=== PATIENT | male | born 1970 | race Two or more races ===

== ENCOUNTER 2016-10-19 12:52 | Emergency (ER) | payer BC, MEDICAID ==
[2016-10-19 13:01] VITALS: BP 148/94
--- NOTE | 2016-10-19 13:40 | EDM.PDOC ---
ED HPI GENERAL MEDICAL PROBLEM - General Chief Complaint: Back Pain or Injury Stated Complaint: FELL MULTIPLE INJURIES Time Seen by Provider: 10/19/16 13:13 Source of Information: Reports: Patient History Limitations: Reports: No Limitations - History of Present Illness INITIAL COMMENTS - FREE TEXT/NARRATIVE: Patient is a 45-year-old male with a history of MS who presents ED complaining of posterior/lateral neck pain, discomfort to his wrists bilaterally, discomfort to his left knee, discomfort to his left/right ankle. Patient states [place] his left foot got caught on a monitor cord causing him to trip and fall on all fours. Patient did catch himself with his hands and landed on his knees. There was no loss of consciousness. Patient was able to get up with assistance and ambulate with a cane/walker with no issues. States earlier this morning he awoke with increasing discomfort/sensation changes to the above areas. He is concerned he may have fractures to his ankles, knee, wrist. He has poor sensation to these areas. And notes previous experiences he was walking around on fractured toes for a few weeks until diagnosed. Pain in the neck is posterior and lateral. It' s increased with palpation and also turning head from left to right. Patient states he was diagnosed with MS in 2009 and states the disease is progressing quite quickly. There is a family history. Patient denies any additional complaints at this time. Onset Date: 10/19/16 Onset Time: 02:00 Duration: Constant, Waxing/Waning Location: Reports: Other (CHPI) Worsens with: Reports: Other (Palpation), Movement Context: Reports: Other (Fall) Treatments AIR DIRECTOR: Reports: Other (see below) (CHPI) Upper Back Pain Score (Numeric/FACES): 7 - Related Data Allergies Allergy/AdvReac Type Severity Reaction Status Date / Time Oqphuql-Zhf-Sih Reductase Allergy Anaphylactic Verified 07/17/15 19:44 Inhibitor Shock Home Meds: Home Meds Aspirin 81 mg PO DAILY 07/16/15 [History] DULoxetine [Cymbalta] 60 mg PO BEDTIME 07/16/15 [History] Insulin Glarg,Human.Rec.Analog [Lantus] 30 unit SUBCUT BID 07/16/15 [History] Omeprazole [Prilosec] 20 mg PO DAILY 07/16/15 [History] Ranitidine HCl [Ranitidine] 150 mg PO BEDTIME 07/16/15 [History] Insulin Aspart [NovoLOG] 100 unit SUBCUT TIDAC 07/17/15 [History] ALPRAZolam [Xanax] 1 mg PO BID 10/19/16 [History] DULoxetine [Cymbalta] 30 mg PO DAILY 10/19/16 [History] Past Medical History HEENT History: Reports: Other (See Below) Other HEENT History: wears glasses Cardiovascular History: Reports: High Cholesterol Gastrointestinal History: Reports: GERD Musculoskeletal History: Reports: Fracture, Muscular Dystrophy Neurological History: Reports: Neuropathy, Peripheral Endocrine/Metabolic History: Reports: Diabetes, Type I Social & Family History - Tobacco Use Smoking Status *Q: Never Smoker Years of Tobacco use: 20 Packs/Tins Daily: 1 Used Tobacco, but Quit: Yes Month Tobacco Last Used: March 2015 - Caffeine Use Caffeine Use: Reports: Coffee, Tea - Recreational Drug Use Recreational Drug Use: No - Living Situation & Occupation Living situation: Reports: with Family ED ROS GENERAL - Review of Systems Review Of Systems: ROS reveals no pertinent complaints other than HPI. ED EXAM, GENERAL - Physical Exam Exam: See Below Exam Limited By: No Limitations General Appearance: Alert, WD/WN, No Apparent Distress Ears: Hearing Grossly Normal Nose: Normal Inspection Throat/Mouth: Normal Voice, No Airway Compromise Head: Atraumatic, Normocephalic Neck: Normal Inspection, Supple, Limited Range of Motion, Tender Lateral, Tender Midline Respiratory/Chest: No Respiratory Distress, Normal Breath Sounds, No Accessory Muscle Use, Chest Non-Tender Cardiovascular: Normal Peripheral Pulses, Regular Rate, Rhythm Peripheral Pulses: 2+: Radial (R) GI/Abdominal: Normal Bowel Sounds, Soft, Non-Tender, No Organomegaly, No Distention Back Exam: Normal Inspection, Full Range of Motion. No: Paraspinal Tenderness, Vertebral Tenderness Extremities: Normal Inspection, Normal Range of Motion, Non-Tender, No Pedal Edema, Normal Capillary Refill Neurological: Alert, Oriented, CN II-XII Intact, Normal Cognition, Other ( Sensory deficits to the upper or lower extremities) Psychiatric: Normal Affect, Normal Mood Skin Exam: Warm, Dry, Intact, Normal Color, No Rash. No: Ecchymosis Course - Vital Signs Last Recorded V/S: Last Vital Signs Temp 98.2 F 10/19/16 13:00 Pulse 91 10/19/16 13:00 Resp 20 10/19/16 13:00 BP 148/94 H 10/19/16 13:00 Pulse Ox 96 10/19/16 13:00 - Re-Assessments/Exams Free Text/Narrative Re-Assessment/Exam: Will obtain x-rays of the left/right knee, right/left wrist, right/left ankle, and CT of the cervical spine without contrast. 10/19/16 14:25 CT cervical spine nothing acute is identified on CT study of the cervical spine. X-rays of the wrists, knees, ankles did not reveal any acute bony abnormalities. Chronic changes noted. Dr. Schwab reviewed and requested [facility] read wrist images R/L. 10/19/16 15:17 x-ray of the right and left wrist did not reveal any acute bony abnormalities. Will discharge patient home with instructions as documented. Departure - Departure Time of Disposition: 15:18 Disposition: Home, Self-Care 01 Condition: Good Clinical Impression: Bilateral wrist pain Fall Qualifiers: Encounter type: initial encounter Qualified Code(s): W19.XXXA - Unspecified fall, initial encounter Bilateral ankle pain Qualifiers: Chronicity: acute Qualified Code(s): M25.571 - Pain in right ankle and joints of right foot Knee pain, left Qualifiers: Chronicity: acute Qualified Code(s): M25.562 - Pain in left knee - Discharge Information Instructions: Ankle Pain, Wrist Pain Referrals: Thee Morrison Jr, MD [Primary Care Provider] - Forms: ED Department Discharge Additional Instructions: X-rays of the wrist, knees, ankles did not reveal any acute bony abnormalities. If he continued having issues please follow up with her primary care provider for reevaluation and treatment this coming week. Return back to ED if you develop any new or worsening symptoms. Utilize ice to the affected areas as needed. Take Tylenol and ibuprofen in alternating fashion for pain.
--- NOTE | 2016-10-19 14:06 | CT ---
CT cervical spine Technique: Multiple axial sections were obtained from above C1 inferiorly to the bottom of T2. Reconstructed sagittal and coronal images were reviewed. Comparison: No previous cervical spine imaging. Findings: Mastoid sinuses and middle ear cavities are clear. Posterior skull base is intact. Vertebral body heights and disc spaces are fairly well preserved. Vertebral bodies and posterior arches are intact. No subluxation or fracture is seen. Minimal degenerative change is seen within the lower apophyseal joints. Impression: 1. Nothing acute is identified on CT study of the cervical spine. Diagnostic code #2
--- NOTE | 2016-10-19 14:56 | CR ---
Left wrist: 2 views of the left wrist were obtained. Joint spaces are preserved. No fracture or other abnormality is seen. Impression: 1. No abnormality is identified on 2 view left wrist exam. Diagnostic code #1
--- NOTE | 2016-10-19 14:56 | CR ---
Right wrist: 2 views of the right wrist were obtained. Comparison: No previous study. Joint spaces are preserved. No fracture, dislocation or other bony abnormality is seen. Impression: 1. No abnormality is identified on right wrist exam. Diagnostic code #1
--- NOTE | 2016-10-19 17:54 | CR ---
Left knee: AP and lateral views of the left knee were obtained. Comparison: No previous study. Mild medial joint space narrowing is seen. Lateral joint space is preserved. No joint effusion is seen. No acute fracture or other bony abnormality is seen. Impression: 1. Mild medial joint space narrowing. 2. Nothing acute is appreciated on two-view left knee exam. Diagnostic code #2
--- NOTE | 2016-10-19 17:54 | CR ---
Right knee: Two views of the right knee were obtained. Comparison: No previous study. Medial and lateral joint spaces are maintained in height. No joint effusion is seen. No fracture or other bony abnormality is seen. Impression: 1. No abnormality is seen on two-view right knee exam. Diagnostic code #1
--- NOTE | 2016-10-19 17:54 | CR ---
Left ankle: Two views of the left ankle were obtained. Comparison: No previous study. Ankle mortise is symmetric. No fracture or other bony abnormality is seen. Impression: 1. No abnormality is identified on two-view left ankle exam. Diagnostic code #1
--- NOTE | 2016-10-19 17:54 | CR ---
Right ankle: Two views of the right ankle were obtained. Comparison: No previous study. Ankle mortise is symmetric. No fracture or other abnormality is appreciated. Impression: 1. No abnormality is identified on two-view right ankle exam. Diagnostic code #1
== END 2016-10-19 15:25 | disposition home or self-care (01) ==
LOC: JD.ED 12:52
DX: M25.571 Pain in right ankle and joints of right foot (principal); M25.562 Pain in left knee; M25.572 Pain in left ankle and joints of left foot; M25.532 Pain in left wrist; M25.531 Pain in right wrist; K21.9 Gastro-esophageal reflux disease without esophagitis; E10.9 Type 1 diabetes mellitus without complications; Z79.82 Long term (current) use of aspirin; Z79.899 Other long term (current) drug therapy; E78.00 Pure hypercholesterolemia, unspecified; W01.0XXA Fall on same level from slipping, tripping and stumbling without subsequent striking against object, initial encounter
CPT/HCPCS: 72125; 72125-26; 73100-26-LT; 73100-26-RT; 73100-LT; 73100-RT; 73560-26-LT; 73560-26-RT; 73560-LT; 73560-RT; 73600-26-LT; 73600-26-RT; 73600-LT; 73600-RT; 99284; 99284-25

== ENCOUNTER 2017-06-07 14:09 | Emergency (ER) | payer MEDICARE, BC ==
[2017-06-07 14:40] VITALS: BP 162/91
--- NOTE | 2017-06-07 15:12 | EDM.PDOC ---
ED HPI GENERAL MEDICAL PROBLEM - General Chief Complaint: Genitourinary Problem Stated Complaint: BLOOD IN URINE Time Seen by Provider: 06/07/17 14:45 Source of Information: Reports: Patient History Limitations: Reports: Other (MD) - History of Present Illness INITIAL COMMENTS - FREE TEXT/NARRATIVE: Patient is a 46-year-old male with history of muscular dystrophy who presents ED with one episode hematuria. Patient states with urinating noticed some blood within his urine. States became fairly anxious with this episode thus worked himself up and was mildly nauseated for a short period of time. He has no complaints at this time. He's never had blood within his urine. He does not take any anticoagulants. He is taking aspirin 81 mg every day religiously. Denies any history of bleeding disorders. He does have a smoking history quit some time ago. Denies any fever, chills, nausea/vomiting, abdominal pain, dysuria, or any additional complaint. - Related Data Allergies Allergy/AdvReac Type Severity Reaction Status Date / Time Legovpm-Xwi-Zie Reductase Allergy Anaphylactic Verified 07/17/15 19:44 Inhibitor Shock Home Meds: Home Meds Aspirin 81 mg PO DAILY 07/16/15 [History] DULoxetine [Cymbalta] 60 mg PO BID 07/16/15 [History] Insulin Glarg,Human.Rec.Analog [Lantus] 30 unit SUBCUT BID 07/16/15 [History] Omeprazole [Prilosec] 20 mg PO DAILY 07/16/15 [History] Ranitidine HCl [Ranitidine] 150 mg PO BEDTIME 07/16/15 [History] Insulin Aspart [NovoLOG] 100 unit SUBCUT TIDAC 07/17/15 [History] ALPRAZolam [Xanax] 1 mg PO BID 10/19/16 [History] Albuterol Sulfate [Proventil Hfa] 2 puff INH ASDIRECTED 06/07/17 [History] Ammonium Lactate [Lakesha-Hydrolac] 1 applic TOP QID 06/07/17 [History] Cholecalciferol (Vitamin D3) [Vitamin D3] 400 unit PO DAILY 06/07/17 [History] Cholestyramine [Cholestyramine Resin] 5 mg PO DAILY 06/07/17 [History] Cyanocobalamin (Vitamin B12) [Vitamin B12] 1,000 mcg PO DAILY 06/07/17 [History] Lisinopril 20 mg PO BID 06/07/17 [History] Magnesium Gluconate 500 mg PO DAILY 06/07/17 [History] Minocycline [Minocin] 100 mg PO DAILY 06/07/17 [History] Silver Sulfadiazine [Silvadene 1% Cream 20 GM] 1 applic TOP BID 06/07/17 [ History] Past Medical History HEENT History: Reports: Other (See Below) Other HEENT History: wears glasses Cardiovascular History: Reports: High Cholesterol Gastrointestinal History: Reports: GERD Musculoskeletal History: Reports: Fracture, Muscular Dystrophy Neurological History: Reports: Neuropathy, Peripheral Endocrine/Metabolic History: Reports: Diabetes, Type I Social & Family History - Tobacco Use Smoking Status *Q: Never Smoker Years of Tobacco use: 20 Packs/Tins Daily: 1 Used Tobacco, but Quit: Yes Month Tobacco Last Used: March 2015 - Caffeine Use Caffeine Use: Reports: Coffee - Recreational Drug Use Recreational Drug Use: No - Living Situation & Occupation Living situation: Reports: with Family ED ROS GENERAL - Review of Systems Review Of Systems: See Below Constitutional: Reports: No Symptoms Respiratory: Reports: No Symptoms Cardiovascular: Reports: No Symptoms GI/Abdominal: Reports: No Symptoms : Reports: Hematuria. Denies: Dysuria Musculoskeletal: Reports: No Symptoms ED EXAM, RENAL/ - Physical Exam Exam: See Below Exam Limited By: No Limitations General Appearance: Alert, WD/WN, No Apparent Distress Ears: Hearing Grossly Normal Nose: Normal Inspection Throat/Mouth: Normal Voice, No Airway Compromise Neck: Normal Inspection, Supple Respiratory/Chest: No Respiratory Distress, Lungs Clear, Normal Breath Sounds, No Accessory Muscle Use, Chest Non-Tender Cardiovascular: Normal Peripheral Pulses, Regular Rate, Rhythm, No Murmur GI/Abdominal: Normal Bowel Sounds, Soft, Non-Tender, No Organomegaly, Other (No flank pain) (Male) Exam: Deferred (No complaints per patient.) Extremities: Other (Braces to the feet bilaterally.) Neurological: Alert, Oriented, CN II-XII Intact, Normal Cognition Psychiatric: Normal Affect, Normal Mood Skin Exam: Warm, Dry, Intact, Normal Color, No Rash Course - Vital Signs Last Recorded V/S: Last Vital Signs Temp 97.2 F 06/07/17 14:39 Pulse 82 06/07/17 14:39 Resp 20 06/07/17 14:39 BP 162/91 H 06/07/17 14:39 Pulse Ox 95 06/07/17 14:39 - Orders/Labs/Meds Labs: Laboratory Tests 06/07/17 Range/Units 14:50 Urine Color Yellow (Yellow) Urine Appearance Clear (Clear) Urine pH 7.0 (5.0-8.0) Ur Specific [place] 1.020 (1.005-1.030) Urine Protein Negative (Negative) Urine Glucose (UA) Negative (Negative) Urine Ketones Negative (Negative) Urine Occult Blood 3+ H (Negative) Urine Nitrite Negative (Negative) Urine Bilirubin Negative (Negative) Urine Urobilinogen 0.2 (0.2-1.0) Ur Leukocyte Esterase Negative (Negative) Urine RBC 40-50 H (0-5) /hpf Urine WBC 0-5 (0-5) /hpf Ur Epithelial Cells 0-5 (0-5) /hpf Urine Bacteria Not seen (FEW) /hpf Urine Mucus Not seen (FEW) /hpf - Re-Assessments/Exams Free Text/Narrative Re-Assessment/Exam: UA came back positive for 3+ blood. No other concerning finds. He does have a history of smoking thus evaluation by urology would be appropriate. In addition I did review his previous labs obtained at [place] this past week. Hemoglobin, platelet count, and chemistry panel did not reveal any concerning findings. Last A1c was 7.4. Offered to obtain additional blood work and possible CT study of the abdomen and pelvis to which the patient has declined. He will follow-up with his PCP this week and make an appointment with urology for further evaluation for hematuria. Departure - Departure Time of Disposition: 15:13 Disposition: Home, Self-Care 01 Condition: Good Clinical Impression: Hematuria Qualifiers: Hematuria type: unspecified type Qualified Code(s): R31.9 - Hematuria, unspecified - Discharge Information Instructions: Hematuria, Adult Referrals: Thee Morrison Jr, MD [Primary Care Provider] - Forms: ED Department Discharge Additional Instructions: As discussed unclear etiology current complaint with recent episode of hematuria. Only a small amount of blood was present within her urine with evaluation the ED. No signs of infection present. With her history of smoking do believe evaluation by urology is required. Please see her primary care provider this week for reevaluation to ensure no worsening symptoms. Call urology at [facility] this coming Jose Guadalupe to make an appointment. Continue taking all your home medications as prescribed. Push the fluids. Return to the ED if you develop any new or worsening symptoms.
== END 2017-06-07 15:30 | disposition home or self-care (01) ==
LOC: JD.ED 14:09
DX: R31.9 Hematuria, unspecified (principal); E78.00 Pure hypercholesterolemia, unspecified; K21.9 Gastro-esophageal reflux disease without esophagitis; G71.0 Muscular dystrophy; Z88.8 Allergy status to other drugs, medicaments and biological substances; Z79.899 Other long term (current) drug therapy
CPT/HCPCS: 81001; 99283

== ENCOUNTER 2017-09-24 19:28 | Inpatient (IN) | payer MEDICARE, BC ==
[2017-09-24 19:34] VITALS: BP 135/78
[2017-09-24] MEDS ORDERED: Ondansetron 4 MG/2 ML SDV IVPUSH ONE (19:35)
[2017-09-24] MEDS ORDERED: Dextrose 5%-0.9% NaCl 1,000 ML IV SCH (19:45)
[2017-09-24] MEDS: Glucose Gel 15 GM in 37.5 GM Tube PO PRN ×2 (19:57→20:49)
[2017-09-24] MEDS: 50% Dextrose in Water 50 ML Syringe IVPUSH PRN ×3 (19:57→21:45)
[2017-09-24] MEDS ORDERED: Dextrose 10% in Water 500 ML IV SCH (20:00)
--- NOTE | 2017-09-24 20:23 | EDM.PDOC ---
ED HPI GENERAL MEDICAL PROBLEM - General Chief Complaint: Diabetic Complaint Stated Complaint: [facility] Time Seen by Provider: 09/24/17 20:07 Source of Information: Reports: Patient History Limitations: Reports: No Limitations - History of Present Illness INITIAL COMMENTS - FREE TEXT/NARRATIVE: Patient is a 46-year-old male with a history of MS and type 1 diabetes. Patient states at 1630 today he checked his blood sugar and it read 271. This is after eating a few slices of pizza. Patient waited 15 minutes prior to obtaining blood sugar. At that time he took 30 units of Levemir and also 20 units of NovoLog. At approximately 1700 hrs. he went to lay down because he was tired. Shortly after he started developing cold sweats and became fidgety concerning for low blood sugar. He checked his blood sugar and it read 31. Patient ate a few popsicles and drank a glass of milk rechecked it again and it was 30. Again he ate some more glucose tabs and waited 15 minutes and slightly raised it to 62. He one more glucose tab waited 15 minutes and it dropped to 51. Patient called 911 and was evaluated by EMS. They administered d50 and had patient eat jelly sandwiches along with other sweets. Blood sugars continued to drop. while enroute. Patient denies changes to insulin dosages. Denies CP, SOB , N/V, fever, dysuria, infected wounds or any additional complaints. States he did not inadvertently take to much insulin. - Related Data Allergies Allergy/AdvReac Type Severity Reaction Status Date / Time Lsvarql-Pqy-Alk Reductase Allergy Anaphylactic Verified 09/24/17 19:30 Inhibitor Shock Home Meds: Home Meds Aspirin 81 mg PO DAILY 07/16/15 [History] DULoxetine [Cymbalta] 60 mg PO DAILY 07/16/15 [History] Insulin Glarg,Human.Rec.Analog [Lantus] 30 unit SUBCUT BID 07/16/15 [History] Omeprazole [Prilosec] 20 mg PO DAILY 07/16/15 [History] Ranitidine HCl [Ranitidine] 150 mg PO BEDTIME 07/16/15 [History] Insulin Aspart [NovoLOG] 100 unit SUBCUT TIDAC 07/17/15 [History] ALPRAZolam [Xanax] 1 mg PO TID 10/19/16 [History] Albuterol Sulfate [Proventil Hfa] 2 puff INH ASDIRECTED 06/07/17 [History] Ammonium Lactate [Lakesha-Hydrolac] 1 applic TOP QID 06/07/17 [History] Cholecalciferol (Vitamin D3) [Vitamin D3] 400 unit PO DAILY 06/07/17 [History] Cholestyramine [Cholestyramine Resin] 4 gm PO DAILY 06/07/17 [History] Cyanocobalamin (Vitamin B12) [Vitamin B12] 1,000 mcg PO DAILY 06/07/17 [History] Lisinopril 20 mg PO BID 06/07/17 [History] Magnesium Gluconate 500 mg PO DAILY 06/07/17 [History] Minocycline [Minocin] 100 mg PO DAILY 06/07/17 [History] Silver Sulfadiazine [Silvadene 1% Cream 20 GM] 1 applic TOP BID 06/07/17 [ History] Calcium Carbonate/Vitamin D3 [Calcium 600 + D3 Softgel] 1 each PO DAILY [History] Insulin Detemir [Levemir] 30 unit SQ BID 09/24/17 [History] Lidocaine 5% [Lidoderm 5%] 1 patch TOP DAILY PRN 09/24/17 [History] Past Medical History HEENT History: Reports: Other (See Below) Other HEENT History: wears glasses Cardiovascular History: Reports: High Cholesterol Gastrointestinal History: Reports: GERD Musculoskeletal History: Reports: Fracture, Muscular Dystrophy Neurological History: Reports: Neuropathy, Peripheral Endocrine/Metabolic History: Reports: Diabetes, Type I Social & Family History - Tobacco Use Smoking Status *Q: Never Smoker Second Hand Smoke Exposure: No - Caffeine Use Caffeine Use: Reports: None - Recreational Drug Use Drug Use in Last 12 Months: Yes Recreational Drug Type: Reports: Marijuana/Hashish Other Recreational Drug Type: THC edible Recreational Drug Use Frequency: Weekly - Living Situation & Occupation Living situation: Reports: with Family ED ROS GENERAL - Review of Systems Review Of Systems: See Below Constitutional: Reports: Malaise, Fatigue. Denies: Fever, Chills, Decreased Appetite HEENT: Reports: No Symptoms Respiratory: Reports: No Symptoms Cardiovascular: Reports: No Symptoms GI/Abdominal: Reports: No Symptoms Musculoskeletal: Reports: No Symptoms Neurological: Reports: No Symptoms ED EXAM GENERAL NO PERIP PULSE - Physical Exam Exam: See Below Exam Limited By: No Limitations General Appearance: Alert, WD/WN, No Apparent Distress Eye Exam: Bilateral Eye: EOMI, PERRL Ears: Hearing Grossly Normal Nose: Normal Inspection Throat/Mouth: Normal Voice, No Airway Compromise Head: Atraumatic, Normocephalic Neck: Normal Inspection, Supple Respiratory/Chest: No Respiratory Distress, Lungs Clear, Normal Breath Sounds, No Accessory Muscle Use, Chest Non-Tender Cardiovascular: Normal Peripheral Pulses, Regular Rate, Rhythm, No Murmur GI/Abdominal: Normal Bowel Sounds, Soft, Non-Tender, No Organomegaly, No Distention Back Exam: Normal Inspection Extremities: Normal Inspection Neurological: Alert, Oriented, CN II-XII Intact, Normal Cognition, No Motor/ Sensory Deficits Psychiatric: Normal Affect, Normal Mood Skin Exam: Warm, Dry, Intact, Normal Color, No Rash Course - Vital Signs Last Recorded V/S: Last Vital Signs Temp 97.8 F 09/24/17 19:31 Pulse 89 09/24/17 19:31 Resp 16 09/24/17 19:31 BP 135/78 09/24/17 19:31 Pulse Ox 96 09/24/17 19:31 - Orders/Labs/Meds Labs: Laboratory Tests 09/24/17 09/24/17 09/24/17 Range/Units 19:33 19:53 19:55 WBC 10.57 H (4.23-9.07) K/mm3 RBC 4.61 L (4.63-6.08) M/mm3 Hgb 13.1 L (13.7-17.5) gm/L Hct 38.2 L (40.1-51.0) % MCV 82.9 (79.0-92.2) fl MCH 28.4 (25.7-32.2) pg MCHC 34.3 (32.2-35.5) g/dl RDW Std Deviation 39.8 (35.1-43.9) fL Plt Count 257 (163-337) K/mm3 MPV 11.1 (9.4-12.3) fl Neutrophils % (Manual) 70 H (40-60) % Band Neutrophils % 0 (0-10) % Lymphocytes % (Manual) 27 (20-40) % Atypical Lymphs % 0 % Monocytes % (Manual) 2 (2-10) % Eosinophils % (Manual) 0 L (0.8-7.0) % Basophils % (Manual) 1 (0.2-1.2) Platelet Estimate Adequate Plt Morphology Comment Normal RBC Morph Comment Normal Sodium (136-145) mEq/L Potassium (3.5-5.1) mEq/L Chloride (98-107) mEq/L Carbon Dioxide (21-32) mEq/L Anion Gap (5-15) BUN (7-18) mg/dL Creatinine (0.7-1.3) mg/dL Est Cr Clr Drug Dosing mL/min Estimated GFR (MDRD) (>60) mL/min BUN/Creatinine Ratio (14-18) Glucose (74-106) mg/dL POC Glucose 119 H 80 (70-105) mg/dL Hemoglobin A1c (4.50-6.20) % Calcium (8.5-10.1) mg/dL Total Bilirubin (0.2-1.0) mg/dL AST (15-37) U/L ALT (16-63) U/L Alkaline Phosphatase (46-116) U/L Total Protein (6.4-8.2) g/dl Albumin (3.4-5.0) g/dl Globulin gm/dL Albumin/Globulin Ratio (1-2) Urine Color (Yellow) Urine Appearance (Clear) Urine pH (5.0-8.0) Ur Specific [place] (1.005-1.030) Urine Protein (Negative) Urine Glucose (UA) (Negative) Urine Ketones (Negative) Urine Occult Blood (Negative) Urine Nitrite (Negative) Urine Bilirubin (Negative) Urine Urobilinogen (0.2-1.0) Ur Leukocyte Esterase (Negative) Urine RBC (0-5) /hpf Urine WBC (0-5) /hpf Ur Epithelial Cells (0-5) /hpf Urine Bacteria (FEW) /hpf Urine Mucus (FEW) /hpf 09/24/17 09/24/17 09/24/17 Range/Units 19:55 19:55 20:06 WBC (4.23-9.07) K/mm3 RBC (4.63-6.08) M/mm3 Hgb (13.7-17.5) gm/L Hct (40.1-51.0) % MCV (79.0-92.2) fl MCH (25.7-32.2) pg MCHC (32.2-35.5) g/dl RDW Std Deviation (35.1-43.9) fL Plt Count (163-337) K/mm3 MPV (9.4-12.3) fl Neutrophils % (Manual) (40-60) % Band Neutrophils % (0-10) % Lymphocytes % (Manual) (20-40) % Atypical Lymphs % % Monocytes % (Manual) (2-10) % Eosinophils % (Manual) (0.8-7.0) % Basophils % (Manual) (0.2-1.2) Platelet Estimate Plt Morphology Comment RBC Morph Comment Sodium 146 H (136-145) mEq/L Potassium 3.2 L (3.5-5.1) mEq/L Chloride 109 H (98-107) mEq/L Carbon Dioxide 28 (21-32) mEq/L Anion Gap 12.2 (5-15) BUN 9 (7-18) mg/dL Creatinine 0.9 (0.7-1.3) mg/dL Est Cr Clr Drug Dosing 91.11 mL/min Estimated GFR (MDRD) > 60 (>60) mL/min BUN/Creatinine Ratio 10.0 L (14-18) Glucose 66 L (74-106) mg/dL POC Glucose 194 H (70-105) mg/dL Hemoglobin A1c 7.40 H (4.50-6.20) % Calcium 8.8 (8.5-10.1) mg/dL Total Bilirubin 0.4 (0.2-1.0) mg/dL AST 41 H (15-37) U/L ALT 34 (16-63) U/L Alkaline Phosphatase 142 H (46-116) U/L Total Protein 7.0 (6.4-8.2) g/dl Albumin 3.6 (3.4-5.0) g/dl Globulin 3.4 gm/dL Albumin/Globulin Ratio 1.1 (1-2) Urine Color (Yellow) Urine Appearance (Clear) Urine pH (5.0-8.0) Ur Specific [place] (1.005-1.030) Urine Protein (Negative) Urine Glucose (UA) (Negative) Urine Ketones (Negative) Urine Occult Blood (Negative) Urine Nitrite (Negative) Urine Bilirubin (Negative) Urine Urobilinogen (0.2-1.0) Ur Leukocyte Esterase (Negative) Urine RBC (0-5) /hpf Urine WBC (0-5) /hpf Ur Epithelial Cells (0-5) /hpf Urine Bacteria (FEW) /hpf Urine Mucus (FEW) /hpf 09/24/17 09/24/17 09/24/17 Range/Units 20:17 20:49 20:50 WBC (4.23-9.07) K/mm3 RBC (4.63-6.08) M/mm3 Hgb (13.7-17.5) gm/L Hct (40.1-51.0) % MCV (79.0-92.2) fl MCH (25.7-32.2) pg MCHC (32.2-35.5) g/dl RDW Std Deviation (35.1-43.9) fL Plt Count (163-337) K/mm3 MPV (9.4-12.3) fl Neutrophils % (Manual) (40-60) % Band Neutrophils % (0-10) % Lymphocytes % (Manual) (20-40) % Atypical Lymphs % % Monocytes % (Manual) (2-10) % Eosinophils % (Manual) (0.8-7.0) % Basophils % (Manual) (0.2-1.2) Platelet Estimate Plt Morphology Comment RBC Morph Comment Sodium (136-145) mEq/L Potassium (3.5-5.1) mEq/L Chloride (98-107) mEq/L Carbon Dioxide (21-32) mEq/L Anion Gap (5-15) BUN (7-18) mg/dL Creatinine (0.7-1.3) mg/dL Est Cr Clr Drug Dosing mL/min Estimated GFR (MDRD) (>60) mL/min BUN/Creatinine Ratio (14-18) Glucose (74-106) mg/dL POC Glucose 140 H 76 (70-105) mg/dL Hemoglobin A1c (4.50-6.20) % Calcium (8.5-10.1) mg/dL Total Bilirubin (0.2-1.0) mg/dL AST (15-37) U/L ALT (16-63) U/L Alkaline Phosphatase (46-116) U/L Total Protein (6.4-8.2) g/dl Albumin (3.4-5.0) g/dl Globulin gm/dL Albumin/Globulin Ratio (1-2) Urine Color Yellow (Yellow) Urine Appearance Clear (Clear) Urine pH 6.5 (5.0-8.0) Ur Specific [place] 1.015 (1.005-1.030) Urine Protein Negative (Negative) Urine Glucose (UA) Trace H (Negative) Urine Ketones Negative (Negative) Urine Occult Blood Negative (Negative) Urine Nitrite Negative (Negative) Urine Bilirubin Negative (Negative) Urine Urobilinogen 0.2 (0.2-1.0) Ur Leukocyte Esterase Negative (Negative) Urine RBC Not seen (0-5) /hpf Urine WBC 0-5 (0-5) /hpf Ur Epithelial Cells 0-5 (0-5) /hpf Urine Bacteria Not seen (FEW) /hpf Urine Mucus Not seen (FEW) /hpf 09/24/17 09/24/17 09/24/17 Range/Units 21:04 21:20 21:41 WBC (4.23-9.07) K/mm3 RBC (4.63-6.08) M/mm3 Hgb (13.7-17.5) gm/L Hct (40.1-51.0) % MCV (79.0-92.2) fl MCH (25.7-32.2) pg MCHC (32.2-35.5) g/dl RDW Std Deviation (35.1-43.9) fL Plt Count (163-337) K/mm3 MPV (9.4-12.3) fl Neutrophils % (Manual) (40-60) % Band Neutrophils % (0-10) % Lymphocytes % (Manual) (20-40) % Atypical Lymphs % % Monocytes % (Manual) (2-10) % Eosinophils % (Manual) (0.8-7.0) % Basophils % (Manual) (0.2-1.2) Platelet Estimate Plt Morphology Comment RBC Morph Comment Sodium (136-145) mEq/L Potassium (3.5-5.1) mEq/L Chloride (98-107) mEq/L Carbon Dioxide (21-32) mEq/L Anion Gap (5-15) BUN (7-18) mg/dL Creatinine (0.7-1.3) mg/dL Est Cr Clr Drug Dosing mL/min Estimated GFR (MDRD) (>60) mL/min BUN/Creatinine Ratio (14-18) Glucose (74-106) mg/dL POC Glucose 71 138 H 89 (70-105) mg/dL Hemoglobin A1c (4.50-6.20) % Calcium (8.5-10.1) mg/dL Total Bilirubin (0.2-1.0) mg/dL AST (15-37) U/L ALT (16-63) U/L Alkaline Phosphatase (46-116) U/L Total Protein (6.4-8.2) g/dl Albumin (3.4-5.0) g/dl Globulin gm/dL Albumin/Globulin Ratio (1-2) Urine Color (Yellow) Urine Appearance (Clear) Urine pH (5.0-8.0) Ur Specific [place] (1.005-1.030) Urine Protein (Negative) Urine Glucose (UA) (Negative) Urine Ketones (Negative) Urine Occult Blood (Negative) Urine Nitrite (Negative) Urine Bilirubin (Negative) Urine Urobilinogen (0.2-1.0) Ur Leukocyte Esterase (Negative) Urine RBC (0-5) /hpf Urine WBC (0-5) /hpf Ur Epithelial Cells (0-5) /hpf Urine Bacteria (FEW) /hpf Urine Mucus (FEW) /hpf //18 Range/Units 22:05 WBC (4.23-9.07) K/mm3 RBC (4.63-6.08) M/mm3 Hgb (13.7-17.5) gm/L Hct (40.1-51.0) % MCV (79.0-92.2) fl MCH (25.7-32.2) pg MCHC (32.2-35.5) g/dl RDW Std Deviation (35.1-43.9) fL Plt Count (163-337) K/mm3 MPV (9.4-12.3) fl Neutrophils % (Manual) (40-60) % Band Neutrophils % (0-10) % Lymphocytes % (Manual) (20-40) % Atypical Lymphs % % Monocytes % (Manual) (2-10) % Eosinophils % (Manual) (0.8-7.0) % Basophils % (Manual) (0.2-1.2) Platelet Estimate Plt Morphology Comment RBC Morph Comment Sodium (136-145) mEq/L Potassium (3.5-5.1) mEq/L Chloride (98-107) mEq/L Carbon Dioxide (21-32) mEq/L Anion Gap (5-15) BUN (7-18) mg/dL Creatinine (0.7-1.3) mg/dL Est Cr Clr Drug Dosing mL/min Estimated GFR (MDRD) (>60) mL/min BUN/Creatinine Ratio (14-18) Glucose (74-106) mg/dL POC Glucose 178 H (70-105) mg/dL Hemoglobin A1c (4.50-6.20) % Calcium (8.5-10.1) mg/dL Total Bilirubin (0.2-1.0) mg/dL AST (15-37) U/L ALT (16-63) U/L Alkaline Phosphatase (46-116) U/L Total Protein (6.4-8.2) g/dl Albumin (3.4-5.0) g/dl Globulin gm/dL Albumin/Globulin Ratio (1-2) Urine Color (Yellow) Urine Appearance (Clear) Urine pH (5.0-8.0) Ur Specific [place] (1.005-1.030) Urine Protein (Negative) Urine Glucose (UA) (Negative) Urine Ketones (Negative) Urine Occult Blood (Negative) Urine Nitrite (Negative) Urine Bilirubin (Negative) Urine Urobilinogen (0.2-1.0) Ur Leukocyte Esterase (Negative) Urine RBC (0-5) /hpf Urine WBC (0-5) /hpf Ur Epithelial Cells (0-5) /hpf Urine Bacteria (FEW) /hpf Urine Mucus (FEW) /hpf Meds: Medications Discontinued Medications Generic Name Dose Route Start Last Admin Trade Name Freq PRN Reason Stop Dose Admin Dextrose 15 gm 09/24/17 19:35 09/24/17 20:49 Glutose 15 PO 15 gm ONETIME PRN Administration Hypoglycemia Dextrose 15 gm 09/24/17 20:25 Glutose 15 PO ASDIRECTED PRN Hypoglycemia Dextrose/Water 50 ml 09/24/17 19:35 09/24/17 21:45 Dextrose 50% In Water IVPUSH 50 ml ASDIRECTED PRN Administration Hypoglycemia Dextrose/Sodium Chloride 1,000 mls @ 150 mls/hr 09/24/17 19:45 09/24/17 19:45 Dextrose 5%-Normal Saline IV 150 mls/hr ASDIRECTED KESHA Administration Dextrose/Water 500 mls @ 150 mls/hr 09/24/17 20:00 09/24/17 19:50 Dextrose 10% In Water IV 150 mls/hr ASDIRECTED KESHA Administration Potassium Chloride 10 meq/ 100 mls @ 100 mls/hr 09/24/17 20:45 09/24/17 20:56 Premix IV 100 mls/hr ASDIRECTED KESHA Administration Ondansetron HCl 4 mg 09/24/17 19:35 09/24/17 19:45 Zofran IVPUSH 09/24/17 19:36 4 mg ONETIME ONE Administration Potassium Chloride 40 meq 09/24/17 20:33 09/24/17 20:56 Klor-Con M20 PO 09/24/17 20:34 40 meq ONETIME ONE Administration - Re-Assessments/Exams Free Text/Narrative Re-Assessment/Exam: Per EMS it was 168 in the ambulance bay. With movement to the ED bed patient's blood sugar is 119. Patient was ministered one amp of D50 and oral glucose. We initially ordered D5 with NS but were able to order D10. D10 will run in at 150mls/hr. IV established with D 10 and water at 150 mL per hour. Informed nursing staff may administer D50 and/or oral glucose if patients blood sugars drastically lower. Initial labs and orders to be obtained will include: CBC, C14, HA1C, and UA. 2019 per nursing patient's blood sugar is currently 140. 20 minutes prior patient's blood sugar was 194. He received one amp of D50 and also one tube of oral glucose. Patient was administered another tube of oral glucose with continued frequent blood sugar checks. 09/24/17 20:29 CBC: White blood cell count 10.57, hemoglobin 13.1, platelet count 257, differential pending. Sodium 146, potassium 3.2, hCG 12.2, creatinine 0.9, glucose 66, AST and alk phosphatase mildly elevated. Per nursing staff patient has admitted to taking xanax and edible marijuana candies just prior to administering himself insulin. Their are discrepancies in the story. states he has taken two xanax and eaten multiple edible marijuana candies. I suspect patient inadvertently administered to much insulin. 09/24/17 20:33 ordered potassium 40 mEq by mouth and also 10 mEq potassium rider. 09/24/17 21:[address] Smart vice president [facility]. He agrees with admission. Request ICU. Per nursing staff patients BS is Departure - Departure Time of Disposition: 20:32 Disposition: Admitted As Inpatient 68 Condition: Fair Clinical Impression: Hypoglycemia, Hypokalemia Adverse reaction to drug Qualifiers: Encounter type: initial encounter Qualified Code(s): T88.7XXA - Unspecified adverse effect of drug or medicament, initial encounter - Discharge Information
[2017-09-24] MEDS ORDERED: Glucose Gel 15 GM in 37.5 GM Tube PO PRN (20:25)
[2017-09-24] MEDS ORDERED: Potassium Chloride 20 MEQ Tab.ER PO ONE (20:33)
[2017-09-24] MEDS ORDERED: Potassium Chloride 10 MEQ in Premix Bag 1 BAG IV SCH (20:45)
--- NOTE | 2017-09-24 23:55 | PCM.HP ---
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 He reports a blood glucose level as low as 31 after taking 30 units of Levemir and 20 units of Novolog. He ate popsicles and drank a glass of milk but his sugar remained in the 30s. At that time, he took glucose tabs and waited for 15 minutes before he obtained a repeat glucose level of 62. He took in additional glucose tabs in anticipation of improving his level but his glucose dropped further down to the low 50s. Patient then called 911 and was provided initial care by EMS with some sandwich and sweets before he was brought over to ED for further management. His initial work up in ED shows a CBC remarkable for WBC of 10.57, RBC of 4.61, Hgb of 13.1, Hct of 38.2, Neutrophils of 70% and eosinophils of 0%. His chemistry is significant for sodium of 146, potassium of 3.2, chloride of 109, glucose of 66, A1C of 7.40, AST of 41, and alkaline phosphatase of 142. Her UA is negative for UTI. Patient is currently receiving glucose drip (Dextrose 10%) however his serial glucose levels are inconsistent following valleys and troughs pattern. He is being admitted to the unit for medical management of symptomatic hypoglycemia. He is DNR/DNI. - Related Data Allergies/Adverse Reactions: Allergies Allergy/AdvReac Type Severity Reaction Status Date / Time Lvbqata-[id number]-Kwu Reductase Allergy Anaphylactic Verified 09/24/17 19:30 Inhibitor Shock Home Medications: Home Meds Aspirin 81 mg PO DAILY 07/16/15 [History] DULoxetine [Cymbalta] 60 mg PO DAILY 07/16/15 [History] Insulin Glarg,Human.Rec.Analog [Lantus] 30 unit SUBCUT BID 07/16/15 [History] Omeprazole [Prilosec] 20 mg PO DAILY 07/16/15 [History] Ranitidine HCl [Ranitidine] 150 mg PO BEDTIME 07/16/15 [History] Insulin Aspart [NovoLOG] 100 unit SUBCUT TIDAC 07/17/15 [History] ALPRAZolam [Xanax] 1 mg PO TID 10/19/16 [History] Albuterol Sulfate [Proventil Hfa] 2 puff INH ASDIRECTED 06/07/17 [History] Ammonium Lactate [Lakesha-Hydrolac] 1 applic TOP QID 06/07/17 [History] Cholecalciferol (Vitamin D3) [Vitamin D3] 400 unit PO DAILY 06/07/17 [History] Cholestyramine [Cholestyramine Resin] 4 gm PO DAILY 06/07/17 [History] Cyanocobalamin (Vitamin B12) [Vitamin B12] 1,000 mcg PO DAILY 06/07/17 [History] Lisinopril 20 mg PO BID 06/07/17 [History] Magnesium Gluconate 500 mg PO DAILY 06/07/17 [History] Minocycline [Minocin] 100 mg PO DAILY 06/07/17 [History] Silver Sulfadiazine [Silvadene 1% Cream 20 GM] 1 applic TOP BID 06/07/17 [ History] Calcium Carbonate/Vitamin D3 [Calcium 600 + D3 Softgel] 1 each PO DAILY [History] Insulin Detemir [Levemir] 30 unit SQ BID 09/24/17 [History] Lidocaine 5% [Lidoderm 5%] 1 patch TOP DAILY PRN 09/24/17 [History] Past Medical History HEENT History: Reports: Other (See Below) Other HEENT History: wears glasses Cardiovascular History: Reports: High Cholesterol Gastrointestinal History: Reports: GERD Musculoskeletal History: Reports: Fracture, Muscular Dystrophy Neurological History: Reports: Neuropathy, Peripheral Endocrine/Metabolic History: Reports: Diabetes, Type I Social & Family History - Tobacco Use Smoking Status *Q: Never Smoker Second Hand Smoke Exposure: No - Caffeine Use Caffeine Use: Reports: Coffee - Recreational Drug Use Recreational Drug Use: Yes Drug Use in Last 12 Months: Yes Recreational Drug Type: Reports: Marijuana/Hashish Other Recreational Drug Type: THC edible Recreational Drug Use Frequency: Daily - Living Situation & Occupation Living situation: Reports: with Family H&P Review of Systems - Review of Systems: Review Of Systems: See Below Free Text/Narrative: Patient left AMA General: Reports: Malaise, Fatigue. Denies: Fever, Chills, Weakness HEENT: Reports: No Symptoms Pulmonary: Denies: Shortness of Breath, Wheezing, Pleuritic Chest Pain Cardiovascular: Denies: Chest Pain, Palpitations, Dyspnea on Exertion, Lightheadedness Gastrointestinal: Denies: Abdominal Pain, Nausea, Vomiting Genitourinary: Reports: No Symptoms Musculoskeletal: Reports: No Symptoms Skin: Reports: No Symptoms Psychiatric: Denies: Confusion, Depression, Anxiety, Agitation, Hallucinations Neurological: Reports: Pre-Existing Deficit, Difficulty Walking, Weakness, Gait Disturbance. Denies: Confusion, Dizziness, Headache, Seizure, Syncope, Trouble Speaking, Change in Speech Hematologic/Lymphatic: Reports: No Symptoms Immunologic: Reports: No Symptoms Exam - Exam Exam: See Below - Vital Signs Vital Signs: Last Vital Signs Temp 36.6 C 09/24/17 19:31 Pulse 89 09/24/17 19:31 Resp 16 09/24/17 19:31 BP 135/78 09/24/17 19:31 Pulse Ox 96 09/24/17 19:31 Weight: 96.162 kg - Exam General: Alert, Oriented. No: Cooperative, Mild Distress HEENT: Conjunctiva Clear, EACs Clear, EOMI, Hearing Intact, Mucosa Moist & [place] , Nares Patent, Normal Nasal Septum, Posterior Pharynx Clear, Pupils Equal, Pupils Reactive Neck: Supple, Trachea Midline, Full Range of Motion Lungs: Normal Respiratory Effort, Decreased Breath Sounds Cardiovascular: Regular Rate, Regular Rhythm GI/Abdominal Exam: Normal Bowel Sounds, Soft, Non-Tender, No Organomegaly, No Distention, No Abnormal Bruit (Male) Exam: Deferred Rectal (Males) Exam: Deferred Back Exam: Decreased Range of Motion, Muscle Spasm, Vertebral Tenderness Extremities: Normal Range of Motion, Non-Tender, No Pedal Edema, Normal Capillary Refill, Other (hands have signs of moderate rheumatologic changes). No: Normal Inspection Peripheral Pulses: 2+: Posterior Tibial (L), Posterior Tibial (R), Dorsalis Pedis (L), Dorsalis Pedis (R) Skin: Warm, Intact. No: Dry Neuro Extensive - Mental Status: Alert, Oriented x3, Normal Mood/Affect, Normal Cognition, Memory Intact Neuro Extensive - Motor, Sensory, Reflexes: CN II-XII Intact (very limited due to underlying msuclar dystrophy disease), Abnormal Gait, Abnormal Sensation, Abnormal Light Touch, Abnormal Motor, Motor/Sensory Deficits Psychiatric: Alert, Normal Affect, Normal Mood Physical Exam Comments:: Patient left AMA - Patient Data Lab Results Last 24 hrs: Laboratory Results - last 24 hr 09/24/17 09/24/17 09/24/17 Range/Units 19:33 19:53 19:55 WBC 10.57 H (4.23-9.07) K/mm3 RBC 4.61 L (4.63-6.08) M/mm3 Hgb 13.1 L (13.7-17.5) gm/L Hct 38.2 L (40.1-51.0) % MCV 82.9 (79.0-92.2) fl MCH 28.4 (25.7-32.2) pg MCHC 34.3 (32.2-35.5) g/dl RDW Std Deviation 39.8 (35.1-43.9) fL Plt Count 257 (163-337) K/mm3 MPV 11.1 (9.4-12.3) fl Neutrophils % (Manual) 70 H (40-60) % Band Neutrophils % 0 (0-10) % Lymphocytes % (Manual) 27 (20-40) % Atypical Lymphs % 0 % Monocytes % (Manual) 2 (2-10) % Eosinophils % (Manual) 0 L (0.8-7.0) % Basophils % (Manual) 1 (0.2-1.2) Platelet Estimate Adequate Plt Morphology Comment Normal RBC Morph Comment Normal Sodium (136-145) mEq/L Potassium (3.5-5.1) mEq/L Chloride (98-107) mEq/L Carbon Dioxide (21-32) mEq/L Anion Gap (5-15) BUN (7-18) mg/dL Creatinine (0.7-1.3) mg/dL Est Cr Clr Drug Dosing mL/min Estimated GFR (MDRD) (>60) mL/min BUN/Creatinine Ratio (14-18) Glucose (74-106) mg/dL POC Glucose 119 H 80 (70-105) mg/dL Hemoglobin A1c (4.50-6.20) % Calcium (8.5-10.1) mg/dL Total Bilirubin (0.2-1.0) mg/dL AST (15-37) U/L ALT (16-63) U/L Alkaline Phosphatase (46-116) U/L Total Protein (6.4-8.2) g/dl Albumin (3.4-5.0) g/dl Globulin gm/dL Albumin/Globulin Ratio (1-2) Urine Color (Yellow) Urine Appearance (Clear) Urine pH (5.0-8.0) Ur Specific [place] (1.005-1.030) Urine Protein (Negative) Urine Glucose (UA) (Negative) Urine Ketones (Negative) Urine Occult Blood (Negative) Urine Nitrite (Negative) Urine Bilirubin (Negative) Urine Urobilinogen (0.2-1.0) Ur Leukocyte Esterase (Negative) Urine RBC (0-5) /hpf Urine WBC (0-5) /hpf Ur Epithelial Cells (0-5) /hpf Urine Bacteria (FEW) /hpf Urine Mucus (FEW) /hpf 09/24/17 09/24/17 09/24/17 Range/Units 19:55 19:55 20:06 WBC (4.23-9.07) K/mm3 RBC (4.63-6.08) M/mm3 Hgb (13.7-17.5) gm/L Hct (40.1-51.0) % MCV (79.0-92.2) fl MCH (25.7-32.2) pg MCHC (32.2-35.5) g/dl RDW Std Deviation (35.1-43.9) fL Plt Count (163-337) K/mm3 MPV (9.4-12.3) fl Neutrophils % (Manual) (40-60) % Band Neutrophils % (0-10) % Lymphocytes % (Manual) (20-40) % Atypical Lymphs % % Monocytes % (Manual) (2-10) % Eosinophils % (Manual) (0.8-7.0) % Basophils % (Manual) (0.2-1.2) Platelet Estimate Plt Morphology Comment RBC Morph Comment Sodium 146 H (136-145) mEq/L Potassium 3.2 L (3.5-5.1) mEq/L Chloride 109 H (98-107) mEq/L Carbon Dioxide 28 (21-32) mEq/L Anion Gap 12.2 (5-15) BUN 9 (7-18) mg/dL Creatinine 0.9 (0.7-1.3) mg/dL Est Cr Clr Drug Dosing 91.11 mL/min Estimated GFR (MDRD) > 60 (>60) mL/min BUN/Creatinine Ratio 10.0 L (14-18) Glucose 66 L (74-106) mg/dL POC Glucose 194 H (70-105) mg/dL Hemoglobin A1c 7.40 H (4.50-6.20) % Calcium 8.8 (8.5-10.1) mg/dL Total Bilirubin 0.4 (0.2-1.0) mg/dL AST 41 H (15-37) U/L ALT 34 (16-63) U/L Alkaline Phosphatase 142 H (46-116) U/L Total Protein 7.0 (6.4-8.2) g/dl Albumin 3.6 (3.4-5.0) g/dl Globulin 3.4 gm/dL Albumin/Globulin Ratio 1.1 (1-2) Urine Color (Yellow) Urine Appearance (Clear) Urine pH (5.0-8.0) Ur Specific [place] (1.005-1.030) Urine Protein (Negative) Urine Glucose (UA) (Negative) Urine Ketones (Negative) Urine Occult Blood (Negative) Urine Nitrite (Negative) Urine Bilirubin (Negative) Urine Urobilinogen (0.2-1.0) Ur Leukocyte Esterase (Negative) Urine RBC (0-5) /hpf Urine WBC (0-5) /hpf Ur Epithelial Cells (0-5) /hpf Urine Bacteria (FEW) /hpf Urine Mucus (FEW) /hpf 09/24/17 09/24/17 09/24/17 Range/Units 20:17 20:49 20:50 WBC (4.23-9.07) K/mm3 RBC (4.63-6.08) M/mm3 Hgb (13.7-17.5) gm/L Hct (40.1-51.0) % MCV (79.0-92.2) fl MCH (25.7-32.2) pg MCHC (32.2-35.5) g/dl RDW Std Deviation (35.1-43.9) fL Plt Count (163-337) K/mm3 MPV (9.4-12.3) fl Neutrophils % (Manual) (40-60) % Band Neutrophils % (0-10) % Lymphocytes % (Manual) (20-40) % Atypical Lymphs % % Monocytes % (Manual) (2-10) % Eosinophils % (Manual) (0.8-7.0) % Basophils % (Manual) (0.2-1.2) Platelet Estimate Plt Morphology Comment RBC Morph Comment Sodium (136-145) mEq/L Potassium (3.5-5.1) mEq/L Chloride (98-107) mEq/L Carbon Dioxide (21-32) mEq/L Anion Gap (5-15) BUN (7-18) mg/dL Creatinine (0.7-1.3) mg/dL Est Cr Clr Drug Dosing mL/min Estimated GFR (MDRD) (>60) mL/min BUN/Creatinine Ratio (14-18) Glucose (74-106) mg/dL POC Glucose 140 H 76 (70-105) mg/dL Hemoglobin A1c (4.50-6.20) % Calcium (8.5-10.1) mg/dL Total Bilirubin (0.2-1.0) mg/dL AST (15-37) U/L ALT (16-63) U/L Alkaline Phosphatase (46-116) U/L Total Protein (6.4-8.2) g/dl Albumin (3.4-5.0) g/dl Globulin gm/dL Albumin/Globulin Ratio (1-2) Urine Color Yellow (Yellow) Urine Appearance Clear (Clear) Urine pH 6.5 (5.0-8.0) Ur Specific [place] 1.015 (1.005-1.030) Urine Protein Negative (Negative) Urine Glucose (UA) Trace H (Negative) Urine Ketones Negative (Negative) Urine Occult Blood Negative (Negative) Urine Nitrite Negative (Negative) Urine Bilirubin Negative (Negative) Urine Urobilinogen 0.2 (0.2-1.0) Ur Leukocyte Esterase Negative (Negative) Urine RBC Not seen (0-5) /hpf Urine WBC 0-5 (0-5) /hpf Ur Epithelial Cells 0-5 (0-5) /hpf Urine Bacteria Not seen (FEW) /hpf Urine Mucus Not seen (FEW) /hpf 09/24/17 09/24/17 09/24/17 Range/Units 21:04 21:20 21:41 WBC (4.23-9.07) K/mm3 RBC (4.63-6.08) M/mm3 Hgb (13.7-17.5) gm/L Hct (40.1-51.0) % MCV (79.0-92.2) fl MCH (25.7-32.2) pg MCHC (32.2-35.5) g/dl RDW Std Deviation (35.1-43.9) fL Plt Count (163-337) K/mm3 MPV (9.4-12.3) fl Neutrophils % (Manual) (40-60) % Band Neutrophils % (0-10) % Lymphocytes % (Manual) (20-40) % Atypical Lymphs % % Monocytes % (Manual) (2-10) % Eosinophils % (Manual) (0.8-7.0) % Basophils % (Manual) (0.2-1.2) Platelet Estimate Plt Morphology Comment RBC Morph Comment Sodium (136-145) mEq/L Potassium (3.5-5.1) mEq/L Chloride (98-107) mEq/L Carbon Dioxide (21-32) mEq/L Anion Gap (5-15) BUN (7-18) mg/dL Creatinine (0.7-1.3) mg/dL Est Cr Clr Drug Dosing mL/min Estimated GFR (MDRD) (>60) mL/min BUN/Creatinine Ratio (14-18) Glucose (74-106) mg/dL POC Glucose 71 138 H 89 (70-105) mg/dL Hemoglobin A1c (4.50-6.20) % Calcium (8.5-10.1) mg/dL Total Bilirubin (0.2-1.0) mg/dL AST (15-37) U/L ALT (16-63) U/L Alkaline Phosphatase (46-116) U/L Total Protein (6.4-8.2) g/dl Albumin (3.4-5.0) g/dl Globulin gm/dL Albumin/Globulin Ratio (1-2) Urine Color (Yellow) Urine Appearance (Clear) Urine pH (5.0-8.0) Ur Specific [place] (1.005-1.030) Urine Protein (Negative) Urine Glucose (UA) (Negative) Urine Ketones (Negative) Urine Occult Blood (Negative) Urine Nitrite (Negative) Urine Bilirubin (Negative) Urine Urobilinogen (0.2-1.0) Ur Leukocyte Esterase (Negative) Urine RBC (0-5) /hpf Urine WBC (0-5) /hpf Ur Epithelial Cells (0-5) /hpf Urine Bacteria (FEW) /hpf Urine Mucus (FEW) /hpf 09/24/17 09/24/17 Range/Units 22:05 22:36 WBC (4.23-9.07) K/mm3 RBC (4.63-6.08) M/mm3 Hgb (13.7-17.5) gm/L Hct (40.1-51.0) % MCV (79.0-92.2) fl MCH (25.7-32.2) pg MCHC (32.2-35.5) g/dl RDW Std Deviation (35.1-43.9) fL Plt Count (163-337) K/mm3 MPV (9.4-12.3) fl Neutrophils % (Manual) (40-60) % Band Neutrophils % (0-10) % Lymphocytes % (Manual) (20-40) % Atypical Lymphs % % Monocytes % (Manual) (2-10) % Eosinophils % (Manual) (0.8-7.0) % Basophils % (Manual) (0.2-1.2) Platelet Estimate Plt Morphology Comment RBC Morph Comment Sodium (136-145) mEq/L Potassium (3.5-5.1) mEq/L Chloride (98-107) mEq/L Carbon Dioxide (21-32) mEq/L Anion Gap (5-15) BUN (7-18) mg/dL Creatinine (0.7-1.3) mg/dL Est Cr Clr Drug Dosing mL/min Estimated GFR (MDRD) (>60) mL/min BUN/Creatinine Ratio (14-18) Glucose (74-106) mg/dL POC Glucose 178 H 136 H (70-105) mg/dL Hemoglobin A1c (4.50-6.20) % Calcium (8.5-10.1) mg/dL Total Bilirubin (0.2-1.0) mg/dL AST (15-37) U/L ALT (16-63) U/L Alkaline Phosphatase (46-116) U/L Total Protein (6.4-8.2) g/dl Albumin (3.4-5.0) g/dl Globulin gm/dL Albumin/Globulin Ratio (1-2) Urine Color (Yellow) Urine Appearance (Clear) Urine pH (5.0-8.0) Ur Specific [place] (1.005-1.030) Urine Protein (Negative) Urine Glucose (UA) (Negative) Urine Ketones (Negative) Urine Occult Blood (Negative) Urine Nitrite (Negative) Urine Bilirubin (Negative) Urine Urobilinogen (0.2-1.0) Ur Leukocyte Esterase (Negative) Urine RBC (0-5) /hpf Urine WBC (0-5) /hpf Ur Epithelial Cells (0-5) /hpf Urine Bacteria (FEW) /hpf Urine Mucus (FEW) /hpf Result Diagrams: 09/24/17 19:55 09/24/17 19:55 Problem List Initiated/Reviewed/Updated: Yes Orders Last 24hrs: Active Orders 24 hr Category Date Time Status Patient Status [ADT] Routine ADT 09/24/17 21:59 Active Dextrose 10% in Water 500 ml Med 09/24/17 20:00 Active IV ASDIRECTED Dextrose 50% in Water Med 09/24/17 19:35 Active 50 ml IVPUSH ASDIRECTED PRN Dextrose [Glutose 15] Med 09/24/17 20:25 Active 15 gm PO ASDIRECTED PRN Dextrose [Glutose 15] Med 09/24/17 19:35 Active 15 gm PO ONETIME PRN Potassium Chloride [KCl 10 MEQ in Water 100 ML] 10 meq Med 09/24/17 20:45 Active Premix Bag 1 bag IV ASDIRECTED Medication Orders Dextrose (Glutose 15) 15 gm PO ONETIME PRN PRN Reason: Hypoglycemia Last Admin: 09/24/17 20:49 Dose: 15 gm Admin: 09/24/17 19:57 Dose: 15 gm Dextrose (Glutose 15) 15 gm PO ASDIRECTED PRN PRN Reason: Hypoglycemia Dextrose/Water (Dextrose 50% In Water) 50 ml IVPUSH ASDIRECTED PRN PRN Reason: Hypoglycemia Last Admin: 09/24/17 21:45 Dose: 50 ml Admin: 09/24/17 21:05 Dose: 50 ml Admin: 09/24/17 19:57 Dose: 50 ml Dextrose/Water (Dextrose 10% In Water) 500 mls @ 150 mls/hr IV ASDIRECTED [facility] Last Admin: 09/24/17 19:50 Dose: 150 mls/hr Potassium Chloride 10 meq/ (Premix) 100 mls @ 100 mls/hr IV ASDIRECTED [facility] Last Admin: 09/24/17 20:56 Dose: 100 mls/hr Assessment/Plan Comment:: Assessment/Plan: Acute: Hypoglycemia - Has underlying DM2 - Suspect iatrogenic from "being high" on edible marijuana - He is currently on glucose drip but his serial glucose levels are inconsistent - Will continue drip with serial accu-check Illicit drug Use - He is on edible marijuana-not approved here in [place] - He used it pain and spastic management of his muscular dystrophy Chronic: DM2 Charcot Kayy Tooth Disease Peripheral Neuropathy Anxiety Depression Plan: Admit to ICU Glucose drip with serial glucose check Hold off Insulin Routine AM Labs PT/OT Consult SW/CM for d/c planning Code status: DNR/DNI
--- NOTE | 2017-09-25 | PCM.DCSUM1 ---
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 He was admitted for medical management of symptomatic hypoglycemia. - Discharge Data Discharge Date: 09/25/17 Discharge Disposition: Against Medical Advice 07 Condition: Undetermined - Discharge Diagnosis/Problem(s) (1) Hypoglycemia SNOMED Code(s): 512669276 ICD Code: E16.2 - HYPOGLYCEMIA, UNSPECIFIED Status: Acute (2) Diabetes 1.5, managed as type 2 SNOMED Code(s): 177494262 ICD Code: E10.9 - TYPE 1 DIABETES MELLITUS WITHOUT COMPLICATIONS Status: Acute (3) Illicit drug use SNOMED Code(s): 258314931 ICD Code: F19.90 - OTHER PSYCHOACTIVE SUBSTANCE USE, UNSPECIFIED, UNCOMPLICATED Status: Acute Problem Details: - Using edible marijuana which is illegal here in [place] (4) 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 He never made it to the unit for further management. - Patient Instructions Other/Special Instructions: - Patient left AMA - Discharge Plan Home Medications: Home Meds Aspirin 81 mg PO DAILY 07/16/15 [History] DULoxetine [Cymbalta] 60 mg PO DAILY 07/16/15 [History] Insulin Glarg,Human.Rec.Analog [Lantus] 30 unit SUBCUT BID 07/16/15 [History] Omeprazole [Prilosec] 20 mg PO DAILY 07/16/15 [History] Ranitidine HCl [Ranitidine] 150 mg PO BEDTIME 07/16/15 [History] Insulin Aspart [NovoLOG] 100 unit SUBCUT TIDAC 07/17/15 [History] ALPRAZolam [Xanax] 1 mg PO TID 10/19/16 [History] Albuterol Sulfate [Proventil Hfa] 2 puff INH ASDIRECTED 06/07/17 [History] Ammonium Lactate [Lakesha-Hydrolac] 1 applic TOP QID 06/07/17 [History] Cholecalciferol (Vitamin D3) [Vitamin D3] 400 unit PO DAILY 06/07/17 [History] Cholestyramine [Cholestyramine Resin] 4 gm PO DAILY 06/07/17 [History] Cyanocobalamin (Vitamin B12) [Vitamin B12] 1,000 mcg PO DAILY 06/07/17 [History] Lisinopril 20 mg PO BID 06/07/17 [History] Magnesium Gluconate 500 mg PO DAILY 06/07/17 [History] Minocycline [Minocin] 100 mg PO DAILY 06/07/17 [History] Silver Sulfadiazine [Silvadene 1% Cream 20 GM] 1 applic TOP BID 06/07/17 [ History] Calcium Carbonate/Vitamin D3 [Calcium 600 + D3 Softgel] 1 each PO DAILY [History] Insulin Detemir [Levemir] 30 unit SQ BID 09/24/17 [History] Lidocaine 5% [Lidoderm 5%] 1 patch TOP DAILY PRN 09/24/17 [History] Referrals: PCP,None [Primary Care Provider] - - Discharge Summary/Plan Comment Discharge Summary/Plan Comment: Patient left AMA - General Info Date of Service: 09/25/17 Admission Dx/Problem (Free Text: Admission Diagnosis/Problem Admission Diagnosis/Problem Hypoglycemia associated with diabetes Subjective Update: Follow Up - Review of Systems Systems Review Comment: ROS unable to obtain. Patient left AMA. - Patient Data Vitals - Most Recent: Last Vital Signs Temp 36.6 C 09/24/17 19:31 Pulse 89 09/24/17 19:31 Resp 16 09/24/17 19:31 BP 135/78 09/24/17 19:31 Pulse Ox 96 09/24/17 19:31 Weight - Most Recent: 96.162 kg Lab Results - Last 24 hrs: Laboratory Results - last 24 hr 09/24/17 09/24/17 09/24/17 Range/Units 19:33 19:53 19:55 WBC 10.57 H (4.23-9.07) K/mm3 RBC 4.61 L (4.63-6.08) M/mm3 Hgb 13.1 L (13.7-17.5) gm/L Hct 38.2 L (40.1-51.0) % MCV 82.9 (79.0-92.2) fl MCH 28.4 (25.7-32.2) pg MCHC 34.3 (32.2-35.5) g/dl RDW Std Deviation 39.8 (35.1-43.9) fL Plt Count 257 (163-337) K/mm3 MPV 11.1 (9.4-12.3) fl Neutrophils % (Manual) 70 H (40-60) % Band Neutrophils % 0 (0-10) % Lymphocytes % (Manual) 27 (20-40) % Atypical Lymphs % 0 % Monocytes % (Manual) 2 (2-10) % Eosinophils % (Manual) 0 L (0.8-7.0) % Basophils % (Manual) 1 (0.2-1.2) Platelet Estimate Adequate Plt Morphology Comment Normal RBC Morph Comment Normal Sodium (136-145) mEq/L Potassium (3.5-5.1) mEq/L Chloride (98-107) mEq/L Carbon Dioxide (21-32) mEq/L Anion Gap (5-15) BUN (7-18) mg/dL Creatinine (0.7-1.3) mg/dL Est Cr Clr Drug Dosing mL/min Estimated GFR (MDRD) (>60) mL/min BUN/Creatinine Ratio (14-18) Glucose (74-106) mg/dL POC Glucose 119 H 80 (70-105) mg/dL Hemoglobin A1c (4.50-6.20) % Calcium (8.5-10.1) mg/dL Total Bilirubin (0.2-1.0) mg/dL AST (15-37) U/L ALT (16-63) U/L Alkaline Phosphatase (46-116) U/L Total Protein (6.4-8.2) g/dl Albumin (3.4-5.0) g/dl Globulin gm/dL Albumin/Globulin Ratio (1-2) Urine Color (Yellow) Urine Appearance (Clear) Urine pH (5.0-8.0) Ur Specific [place] (1.005-1.030) Urine Protein (Negative) Urine Glucose (UA) (Negative) Urine Ketones (Negative) Urine Occult Blood (Negative) Urine Nitrite (Negative) Urine Bilirubin (Negative) Urine Urobilinogen (0.2-1.0) Ur Leukocyte Esterase (Negative) Urine RBC (0-5) /hpf Urine WBC (0-5) /hpf Ur Epithelial Cells (0-5) /hpf Urine Bacteria (FEW) /hpf Urine Mucus (FEW) /hpf 09/24/17 09/24/17 09/24/17 Range/Units 19:55 19:55 20:06 WBC (4.23-9.07) K/mm3 RBC (4.63-6.08) M/mm3 Hgb (13.7-17.5) gm/L Hct (40.1-51.0) % MCV (79.0-92.2) fl MCH (25.7-32.2) pg MCHC (32.2-35.5) g/dl RDW Std Deviation (35.1-43.9) fL Plt Count (163-337) K/mm3 MPV (9.4-12.3) fl Neutrophils % (Manual) (40-60) % Band Neutrophils % (0-10) % Lymphocytes % (Manual) (20-40) % Atypical Lymphs % % Monocytes % (Manual) (2-10) % Eosinophils % (Manual) (0.8-7.0) % Basophils % (Manual) (0.2-1.2) Platelet Estimate Plt Morphology Comment RBC Morph Comment Sodium 146 H (136-145) mEq/L Potassium 3.2 L (3.5-5.1) mEq/L Chloride 109 H (98-107) mEq/L Carbon Dioxide 28 (21-32) mEq/L Anion Gap 12.2 (5-15) BUN 9 (7-18) mg/dL Creatinine 0.9 (0.7-1.3) mg/dL Est Cr Clr Drug Dosing 91.11 mL/min Estimated GFR (MDRD) > 60 (>60) mL/min BUN/Creatinine Ratio 10.0 L (14-18) Glucose 66 L (74-106) mg/dL POC Glucose 194 H (70-105) mg/dL Hemoglobin A1c 7.40 H (4.50-6.20) % Calcium 8.8 (8.5-10.1) mg/dL Total Bilirubin 0.4 (0.2-1.0) mg/dL AST 41 H (15-37) U/L ALT 34 (16-63) U/L Alkaline Phosphatase 142 H (46-116) U/L Total Protein 7.0 (6.4-8.2) g/dl Albumin 3.6 (3.4-5.0) g/dl Globulin 3.4 gm/dL Albumin/Globulin Ratio 1.1 (1-2) Urine Color (Yellow) Urine Appearance (Clear) Urine pH (5.0-8.0) Ur Specific [place] (1.005-1.030) Urine Protein (Negative) Urine Glucose (UA) (Negative) Urine Ketones (Negative) Urine Occult Blood (Negative) Urine Nitrite (Negative) Urine Bilirubin (Negative) Urine Urobilinogen (0.2-1.0) Ur Leukocyte Esterase (Negative) Urine RBC (0-5) /hpf Urine WBC (0-5) /hpf Ur Epithelial Cells (0-5) /hpf Urine Bacteria (FEW) /hpf Urine Mucus (FEW) /hpf 09/24/17 09/24/17 09/24/17 Range/Units 20:17 20:49 20:50 WBC (4.23-9.07) K/mm3 RBC (4.63-6.08) M/mm3 Hgb (13.7-17.5) gm/L Hct (40.1-51.0) % MCV (79.0-92.2) fl MCH (25.7-32.2) pg MCHC (32.2-35.5) g/dl RDW Std Deviation (35.1-43.9) fL Plt Count (163-337) K/mm3 MPV (9.4-12.3) fl Neutrophils % (Manual) (40-60) % Band Neutrophils % (0-10) % Lymphocytes % (Manual) (20-40) % Atypical Lymphs % % Monocytes % (Manual) (2-10) % Eosinophils % (Manual) (0.8-7.0) % Basophils % (Manual) (0.2-1.2) Platelet Estimate Plt Morphology Comment RBC Morph Comment Sodium (136-145) mEq/L Potassium (3.5-5.1) mEq/L Chloride (98-107) mEq/L Carbon Dioxide (21-32) mEq/L Anion Gap (5-15) BUN (7-18) mg/dL Creatinine (0.7-1.3) mg/dL Est Cr Clr Drug Dosing mL/min Estimated GFR (MDRD) (>60) mL/min BUN/Creatinine Ratio (14-18) Glucose (74-106) mg/dL POC Glucose 140 H 76 (70-105) mg/dL Hemoglobin A1c (4.50-6.20) % Calcium (8.5-10.1) mg/dL Total Bilirubin (0.2-1.0) mg/dL AST (15-37) U/L ALT (16-63) U/L Alkaline Phosphatase (46-116) U/L Total Protein (6.4-8.2) g/dl Albumin (3.4-5.0) g/dl Globulin gm/dL Albumin/Globulin Ratio (1-2) Urine Color Yellow (Yellow) Urine Appearance Clear (Clear) Urine pH 6.5 (5.0-8.0) Ur Specific [place] 1.015 (1.005-1.030) Urine Protein Negative (Negative) Urine Glucose (UA) Trace H (Negative) Urine Ketones Negative (Negative) Urine Occult Blood Negative (Negative) Urine Nitrite Negative (Negative) Urine Bilirubin Negative (Negative) Urine Urobilinogen 0.2 (0.2-1.0) Ur Leukocyte Esterase Negative (Negative) Urine RBC Not seen (0-5) /hpf Urine WBC 0-5 (0-5) /hpf Ur Epithelial Cells 0-5 (0-5) /hpf Urine Bacteria Not seen (FEW) /hpf Urine Mucus Not seen (FEW) /hpf 09/24/17 09/24/17 09/24/17 Range/Units 21:04 21:20 21:41 WBC (4.23-9.07) K/mm3 RBC (4.63-6.08) M/mm3 Hgb (13.7-17.5) gm/L Hct (40.1-51.0) % MCV (79.0-92.2) fl MCH (25.7-32.2) pg MCHC (32.2-35.5) g/dl RDW Std Deviation (35.1-43.9) fL Plt Count (163-337) K/mm3 MPV (9.4-12.3) fl Neutrophils % (Manual) (40-60) % Band Neutrophils % (0-10) % Lymphocytes % (Manual) (20-40) % Atypical Lymphs % % Monocytes % (Manual) (2-10) % Eosinophils % (Manual) (0.8-7.0) % Basophils % (Manual) (0.2-1.2) Platelet Estimate Plt Morphology Comment RBC Morph Comment Sodium (136-145) mEq/L Potassium (3.5-5.1) mEq/L Chloride (98-107) mEq/L Carbon Dioxide (21-32) mEq/L Anion Gap (5-15) BUN (7-18) mg/dL Creatinine (0.7-1.3) mg/dL Est Cr Clr Drug Dosing mL/min Estimated GFR (MDRD) (>60) mL/min BUN/Creatinine Ratio (14-18) Glucose (74-106) mg/dL POC Glucose 71 138 H 89 (70-105) mg/dL Hemoglobin A1c (4.50-6.20) % Calcium (8.5-10.1) mg/dL Total Bilirubin (0.2-1.0) mg/dL AST (15-37) U/L ALT (16-63) U/L Alkaline Phosphatase (46-116) U/L Total Protein (6.4-8.2) g/dl Albumin (3.4-5.0) g/dl Globulin gm/dL Albumin/Globulin Ratio (1-2) Urine Color (Yellow) Urine Appearance (Clear) Urine pH (5.0-8.0) Ur Specific [place] (1.005-1.030) Urine Protein (Negative) Urine Glucose (UA) (Negative) Urine Ketones (Negative) Urine Occult Blood (Negative) Urine Nitrite (Negative) Urine Bilirubin (Negative) Urine Urobilinogen (0.2-1.0) Ur Leukocyte Esterase (Negative) Urine RBC (0-5) /hpf Urine WBC (0-5) /hpf Ur Epithelial Cells (0-5) /hpf Urine Bacteria (FEW) /hpf Urine Mucus (FEW) /hpf 09/24/17 09/24/17 Range/Units 22:05 22:36 WBC (4.23-9.07) K/mm3 RBC (4.63-6.08) M/mm3 Hgb (13.7-17.5) gm/L Hct (40.1-51.0) % MCV (79.0-92.2) fl MCH (25.7-32.2) pg MCHC (32.2-35.5) g/dl RDW Std Deviation (35.1-43.9) fL Plt Count (163-337) K/mm3 MPV (9.4-12.3) fl Neutrophils % (Manual) (40-60) % Band Neutrophils % (0-10) % Lymphocytes % (Manual) (20-40) % Atypical Lymphs % % Monocytes % (Manual) (2-10) % Eosinophils % (Manual) (0.8-7.0) % Basophils % (Manual) (0.2-1.2) Platelet Estimate Plt Morphology Comment RBC Morph Comment Sodium (136-145) mEq/L Potassium (3.5-5.1) mEq/L Chloride (98-107) mEq/L Carbon Dioxide (21-32) mEq/L Anion Gap (5-15) BUN (7-18) mg/dL Creatinine (0.7-1.3) mg/dL Est Cr Clr Drug Dosing mL/min Estimated GFR (MDRD) (>60) mL/min BUN/Creatinine Ratio (14-18) Glucose (74-106) mg/dL POC Glucose 178 H 136 H (70-105) mg/dL Hemoglobin A1c (4.50-6.20) % Calcium (8.5-10.1) mg/dL Total Bilirubin (0.2-1.0) mg/dL AST (15-37) U/L ALT (16-63) U/L Alkaline Phosphatase (46-116) U/L Total Protein (6.4-8.2) g/dl Albumin (3.4-5.0) g/dl Globulin gm/dL Albumin/Globulin Ratio (1-2) Urine Color (Yellow) Urine Appearance (Clear) Urine pH (5.0-8.0) Ur Specific [place] (1.005-1.030) Urine Protein (Negative) Urine Glucose (UA) (Negative) Urine Ketones (Negative) Urine Occult Blood (Negative) Urine Nitrite (Negative) Urine Bilirubin (Negative) Urine Urobilinogen (0.2-1.0) Ur Leukocyte Esterase (Negative) Urine RBC (0-5) /hpf Urine WBC (0-5) /hpf Ur Epithelial Cells (0-5) /hpf Urine Bacteria (FEW) /hpf Urine Mucus (FEW) /hpf Med Orders - Current: Current Medications Dextrose (Glutose 15) 15 gm PO ONETIME PRN PRN Reason: Hypoglycemia Last Admin: 09/24/17 20:49 Dose: 15 gm Dextrose (Glutose 15) 15 gm PO ASDIRECTED PRN PRN Reason: Hypoglycemia Dextrose/Water (Dextrose 50% In Water) 50 ml IVPUSH ASDIRECTED PRN PRN Reason: Hypoglycemia Last Admin: 09/24/17 21:45 Dose: 50 ml Dextrose/Water (Dextrose 10% In Water) 500 mls @ 150 mls/hr IV ASDIRECTED [facility]ESHA Last Admin: 09/24/17 19:50 Dose: 150 mls/hr Potassium Chloride 10 meq/ (Premix) 100 mls @ 100 mls/hr IV ASDIRECTED [facility] Last Admin: 09/24/17 20:56 Dose: 100 mls/hr Discontinued Medications Dextrose/Sodium Chloride (Dextrose 5%-Normal Saline) 1,000 mls @ 150 mls/hr IV ASDIRECTED [facility] Last Admin: 09/24/17 19:45 Dose: 150 mls/hr Ondansetron HCl (Zofran) 4 mg IVPUSH ONETIME ONE Stop: 09/24/17 19:36 Last Admin: 09/24/17 19:45 Dose: 4 mg Potassium Chloride (Klor-Con M20) 40 meq PO ONETIME ONE Stop: 09/24/17 20:34 Last Admin: 09/24/17 20:56 Dose: 40 meq - Exam Physical Findings Comments:: Unable to examine. Patient left AMA.
== END 2017-09-24 23:45 | disposition left against medical advice (07) | DRG 639 ==
LOC: JD.ED 19:28 → JD.ICU 22:18
PROVIDERS: ADMIT Internal Medicine; ATTEND Internal Medicine
DX: E10.649 Type 1 diabetes mellitus with hypoglycemia without coma (principal); E87.6 Hypokalemia; E78.00 Pure hypercholesterolemia, unspecified; K21.9 Gastro-esophageal reflux disease without esophagitis; G71.0 Muscular dystrophy; E10.42 Type 1 diabetes mellitus with diabetic polyneuropathy; F12.90 Cannabis use, unspecified, uncomplicated; G60.0 Hereditary motor and sensory neuropathy; Z88.8 Allergy status to other drugs, medicaments and biological substances; F41.9 Anxiety disorder, unspecified; F43.21 Adjustment disorder with depressed mood; F19.90 Other psychoactive substance use, unspecified, uncomplicated; Z79.4 Long term (current) use of insulin; Z79.899 Other long term (current) drug therapy; Z79.82 Long term (current) use of aspirin
CPT/HCPCS: 36415; 80053; 81001; 82962 ×9; 83036; 85007; 85027; 96361; 96365; 96375; 96376; 99285; A9270 ×3; J2405; J3480; J7042; J7060 ×3; 99284